=== PATIENT | female | born 1945 | race Caucasian/White ===

== ENCOUNTER 2016-10-12 19:46 | Inpatient (IN) | payer MEDICARE, BC ==
[~2016-10-12] VITALS: Ht 157.5 cm; Wt 45.4 kg
[2016-10-12 20:32] LABS: BASOPHILS 0.4 % (0.0-2.0); EOSINOPHILS 1.9 % (0-7); HEMATOCRIT 41.1 % (36.0-48.0); HEMOGLOBIN 14.1 g/dL (12-16); IMMATURE GRANULOCYTES 0.2 % (0-5); LYMPHOCYTES 27.5 % (15-50); MCH 31.6 pg (26.0-34.0); MCHC 34.3 g/dL (31.0-37.0); MCV 92.2 fL (80.0-100.0); MONOCYTES 13.2 % (2-11); NEUTROPHILS 56.8 % (40-80); PLATELET COUNT 219 10x3/uL (130-400); RBC 4.46 10x6/uL (4.00-5.40); RDW 12.3 % (11.5-14.5); WBC 4.7 10x3/uL (4.8-10.8)
[2016-10-12 20:46] LABS: ALBUMIN 3.7 g/dL (3.4-5.0); ALKALINE PHOSPHATASE 80 U/L (46-116); ALT (SGPT) 37 U/L (10-68); BILIRUBIN - TOTAL 0.23 mg/dL (0.2-1.3); CALC OSMOLALITY 270 mosm/kg (275-300); CALCIUM 8.9 mg/dL (8.5-10.1); CARBON DIOXIDE 30.3 mmol/L (21.0-32.0); CHLORIDE - SERUM 97 mmol/L (98-107); CREATININE - SERUM 0.5 mg/dL (0.6-1.3); GLUCOSE 96 mg/dL (74-106); POTASSIUM - SERUM 3.5 mmol/L (3.5-5.1); PROTEIN - SERUM 7.5 g/dL (6.4-8.2); SODIUM 137 mmol/L (136-145); UREA NITROGEN 5 mg/dL (7-18); eGFR NON AFRICAN AMERICAN > 90 mL/min (90-120)
[2016-10-12 20:57] LABS: CKMB 2.4 U/L (0.0-3.6); CREATINE KINASE 173 UL (21-215)
[2016-10-12 20:59] LABS: TROPONIN-I < 0.017 ng/mL (0.000-0.060)
--- NOTE | 2016-10-12 23:00 | NUR ---
PT ADMITTED TO ROOM 2127 FROM ER. ACCOMPANIED BY HER . ALERT/ORIENTED. PIV TO RFA. ADMISSION ASSESSMENT AND HISTORY COMPLETED. IVF NS @ 75ML/HR INITIATED. IV ROCEPHIN UP. DID NOT GIVE ANY SOLUMEDROL PT RECIEVED 125MG IV WHILE IN ER. WILL START 40MG IV IN AM. HOME MEDS REVIEWED. INITIATE PLAN OF CARE. STAYING WITH PATIENT.
[2016-10-13 00:24] VITALS: BP 165/87
[2016-10-13 02:58] VITALS: BP 165/87; BMI 18.8
[2016-10-13] MEDS ORDERED: ANORO ELLIPTA1 EACH INH (04:13)
[2016-10-13] MEDS ORDERED: FLOVENT HFA (04:14)
--- NOTE | 2016-10-13 08:00 | NUR ---
INTRODUCED MYSELF TO PT PRIMARY RN FOR TODAYS SHIFT. PT IS ALERT AND ORIENTED SITTING UP IN BED WITH AT BEDSIDE. SHIFT ASSESSMENT COMPLETED. PT HAS NC @2L IN PLACE AND OFTEN STATES SHE IS SOB AND CANT CATCH HER BREATH. ENCOURAGED PT TO DEEP BREATHE IN THROUGH HER NOSE AND OUT OF HER MOUTH, PT RETURNED DEMONSTRATION BUT OFTEN BREATHES VERY SHALLOW ON HER OWN. PT DENIES ANY CURRENT NEEDS AT THIS TIME. R.FA PIV IN PLACE RUNNING NS @75ML/HR WITH DRSG CDI AND SWAB CAPS IN USE. WILL CPOC.
[2016-10-13 08:49] VITALS: BP 155/93
--- NOTE | 2016-10-13 12:22 | NUR ---
PT SITTING UP IN BED WITH AT BEDSIDE EATING LUNCH. DENIES ANY CURRENT PAIN OR NEEDS AT THIS TIME. EMPTIED TOP HAT OF 1000ML CLEAR YELLOW URINE FROM TOILET. CL IN REACH. WILL CPOC.
[2016-10-13 12:43] VITALS: BP 149/85
[2016-10-13 13:29] VITALS: Ht 157.5 cm; Wt 45.4 kg
[2016-10-13 17:19] VITALS: BP 166/95
--- NOTE | 2016-10-13 18:47 | NUR ---
REFUSED SCD, UP ADLIB.
--- NOTE | 2016-10-13 20:29 | NUR ---
PT RESITING IN BED. BREATHING TREATMENT IN PROGRESS. O2 @ 2L/NC WITH MILD SOB WME. IV TO RFA WITH NS @75ML/HR. SEE ASSESSMENT. CPOC.
[2016-10-13 21:08] VITALS: BP 149/87
[2016-10-14 04:15] VITALS: BP 141/86
[2016-10-14 06:26] LABS: BASOPHILS 0 % (0.0-2.0); EOSINOPHILS 0 % (0-7); HEMATOCRIT 39.6 % (36.0-48.0); IMMATURE GRANULOCYTES 0.2 % (0-5); LYMPHOCYTES 10.2 % (15-50); MCH 30.7 pg (26.0-34.0); MCHC 32.8 g/dL (31.0-37.0); MCV 93.6 fL (80.0-100.0); MEAN PLATELET VOLUME 10.2 fL (7.4-10.4); MONOCYTES 10.2 % (2-11); NEUTROPHILS 79.4 % (40-80); PLATELET COUNT 261 10x3/uL (130-400); RBC 4.23 10x6/uL (4.00-5.40); RDW 12.6 % (11.5-14.5)
[2016-10-14 06:33] LABS: WBC 6.4 10x3/uL (4.8-10.8)
[2016-10-14 06:39] LABS: CALC OSMOLALITY 278 mosm/kg (275-300); CALCIUM 8.6 mg/dL (8.5-10.1); CHLORIDE - SERUM 102 mmol/L (98-107); CREATININE - SERUM 0.5 mg/dL (0.6-1.3); GLUCOSE 131 mg/dL (74-106); POTASSIUM - SERUM 4.2 mmol/L (3.5-5.1); SODIUM 140 mmol/L (136-145); UREA NITROGEN 8 mg/dL (7-18); eGFR NON AFRICAN AMERICAN > 90 mL/min (90-120)
--- NOTE | 2016-10-14 07:34 | NUR ---
ON HEART MONITOR SHOWING ST, HR 114. ON 2L PER NC. RIGHT FA SEEN WITH NS INFUSING AT 75 CC/HR. ON EP, WILL MONITOR LAB VALUES. PATIENT IS RECEIVING UPDRAFT TREATMENT AT PRESENT TIME. WILL CONTINUE TO MONITOR.
[2016-10-14 08:23] VITALS: BP 134/90
[2016-10-14 09:08] LABS: PHOSPHOROUS 3.7 mg/dL (2.5-4.9)
[2016-10-14 12:17] VITALS: BP 161/83
[2016-10-14 15:15] VITALS: BP 161/86
--- NOTE | 2016-10-14 19:03 | NUR ---
LAYING IN BED, AAOX3, SKIN WARM AND DRY, RESP UNLABORED, IV PATENT TO RIGHT FOREARM, O2@2LNC, MOOD PLEASANT, NO DISTRESS NOTED
[2016-10-14 21:26] VITALS: BP 159/88
[2016-10-15 00:30] VITALS: BP 141/80
--- NOTE | 2016-10-15 00:54 | NUR ---
DIRECTOR OF CAREER SERVICES AT BEDSIDE FOR VS. NEEDS ADDRESSED, CALL LIGHT IN REACH. WILL CONT TO MONITOR.
[2016-10-15 04:30] VITALS: BP 143/89
[2016-10-15 05:32] LABS: BASOPHILS 0.1 % (0.0-2.0); EOSINOPHILS 0 % (0-7); HEMATOCRIT 39.9 % (36.0-48.0); HEMOGLOBIN 12.9 g/dL (12-16); IMMATURE GRANULOCYTES 0.4 % (0-5); LYMPHOCYTES 10.1 % (15-50); MCH 30.5 pg (26.0-34.0); MCHC 32.3 g/dL (31.0-37.0); MCV 94.3 fL (80.0-100.0); MEAN PLATELET VOLUME 9.7 fL (7.4-10.4); MONOCYTES 9.7 % (2-11); NEUTROPHILS 79.7 % (40-80); PLATELET COUNT 291 10x3/uL (130-400); RBC 4.23 10x6/uL (4.00-5.40); RDW 12.6 % (11.5-14.5); WBC 6.8 10x3/uL (4.8-10.8)
[2016-10-15 05:48] LABS: CALC OSMOLALITY 279 mosm/kg (275-300); CALCIUM 9.1 mg/dL (8.5-10.1); CHLORIDE - SERUM 100 mmol/L (98-107); CREATININE - SERUM 0.5 mg/dL (0.6-1.3); GLUCOSE 128 mg/dL (74-106); POTASSIUM - SERUM 4.3 mmol/L (3.5-5.1); SODIUM 140 mmol/L (136-145); eGFR NON AFRICAN AMERICAN > 90 mL/min (90-120)
[2016-10-15 05:50] LABS: UREA NITROGEN 11 mg/dL (7-18)
--- NOTE | 2016-10-15 06:45 | NUR ---
RESTING QUEITLY IN BED, NO DISTRESS NOTED
--- NOTE | 2016-10-15 07:24 | NUR ---
SITTING UP IN BED DOING BREATHING TREATMENT. DENIES NEEDS AT PRESENT TIME ON EP WITH K+ 4.3. ON 2L PER NC. ON HEART MONITOR SHOWING SR, HR 99. RIGHT FA SEEN WITH SALINE LOCK, WILL CONTINUE TO MONITOR.
[2016-10-15 08:13] VITALS: BP 158/90
[2016-10-15 12:43] VITALS: BP 165/88
[2016-10-15 16:00] VITALS: BP 143/90
--- NOTE | 2016-10-15 16:52 | NUR ---
DENIES ANY NEEDS FOR THIS SHIFT. AT BEDSIDE. WILL CONTINUE TO MONITOR.
--- NOTE | 2016-10-15 19:44 | NUR ---
RESUMED CARE OF PT, LYING IN BED RESPIRAITONS EVEN AND UNLABORED ON 2LPM VIA NC. 95 SR ON TELEMETRY. RIGHT FOREARM SALINE LOCKED. NO NEEDS VOICED AT THIS TIME. WILL CONTINUE TO MONITOR. SEE NURSE ASSESSMENT. CALL LIGHT IN REACH.
[2016-10-15 21:24] VITALS: BP 142/94
[2016-10-16 00:30] VITALS: BP 136/86
--- NOTE | 2016-10-16 01:32 | NUR ---
CASING MATERIAL WEIGHER AT BEDSIDE TO OBTAIN VITALS, WILL CONTINUE WITH PLAN OF CARE.
[2016-10-16 04:30] VITALS: BP 144/89
[2016-10-16 05:07] LABS: CALC OSMOLALITY 279 mosm/kg (275-300); CALCIUM 8.8 mg/dL (8.5-10.1); CHLORIDE - SERUM 98 mmol/L (98-107); CREATININE - SERUM 0.6 mg/dL (0.6-1.3); GLUCOSE 139 mg/dL (74-106); POTASSIUM - SERUM 3.9 mmol/L (3.5-5.1); SODIUM 139 mmol/L (136-145); UREA NITROGEN 12 mg/dL (7-18); eGFR NON AFRICAN AMERICAN > 90 mL/min (90-120)
[2016-10-16 05:09] LABS: BASOPHILS 0 % (0.0-2.0); EOSINOPHILS 0 % (0-7); HEMATOCRIT 41.4 % (36.0-48.0); HEMOGLOBIN 13.4 g/dL (12-16); IMMATURE GRANULOCYTES 0.6 % (0-5); LYMPHOCYTES 6.5 % (15-50); MCH 30.6 pg (26.0-34.0); MCHC 32.4 g/dL (31.0-37.0); MCV 94.5 fL (80.0-100.0); MEAN PLATELET VOLUME 9.9 fL (7.4-10.4); NEUTROPHILS 85.9 % (40-80); PLATELET COUNT 331 10x3/uL (130-400); RBC 4.38 10x6/uL (4.00-5.40); RDW 12.6 % (11.5-14.5); WBC 7.7 10x3/uL (4.8-10.8)
--- NOTE | 2016-10-16 06:40 | NUR ---
NO CHANGES FROM PREVIOUS ASSESSMENT, CALL LIGHT IN REACH.
--- NOTE | 2016-10-16 08:07 | NUR ---
REPORTS TO HAVING A "GOOD NIGHT". ON HEARR MONITOR SHOWING SR, HR 78. ON 2L PER NC, WHEEZES HEARD TO RIGHT LUNG, DIMINISHED TO LEFT. RIGHT FOREARM SEEN WITH SALINE LOCK. WILL CONTINUE TO MONITOR.
[2016-10-16 08:32] VITALS: BP 139/90
--- NOTE | 2016-10-16 12:03 | NUR ---
DONATO TORREZ APN HERE TO SEE PATIENT. PATIENT DENIES NEEDS AT PRESENT TIME. WILL CONTINUE TO MONITOR.
[2016-10-16 12:30] VITALS: BP 156/80
[2016-10-16] MEDS ORDERED: FLOVENT HFA 11012 GM INH (14:24)
[2016-10-16 16:44] VITALS: BP 132/72
--- NOTE | 2016-10-16 19:35 | NUR ---
RECEIVED REPORT, 022L, IV-RFA-SL, [id number], BED IS LOW, SRX2, CALL LIGHT IN REACH, WILL CONTINUE TO MONITOR
--- NOTE | 2016-10-16 21:15 | NUR ---
IV-LEAKING RFA- RESITED TO LFA-
--- NOTE | 2016-10-16 23:39 | NUR ---
PHYSICAL THERAPY NURSE AT BEDSIDE FOR VS, NEEDS ADDRESSED AT THIS TIME. CALL LIGHT IN REACH. CONT TO MONITOR.
[2016-10-17 01:19] VITALS: BP 143/81
[2016-10-17 05:06] VITALS: BP 154/93
[2016-10-17 05:36] LABS: BASOPHILS 0 % (0.0-2.0); EOSINOPHILS 0 % (0-7); HEMATOCRIT 41.2 % (36.0-48.0); HEMOGLOBIN 13.3 g/dL (12-16); IMMATURE GRANULOCYTES 0.9 % (0-5); LYMPHOCYTES 10.4 % (15-50); MCH 30.4 pg (26.0-34.0); MCHC 32.3 g/dL (31.0-37.0); MCV 94.3 fL (80.0-100.0); MEAN PLATELET VOLUME 9.6 fL (7.4-10.4); MONOCYTES 9.3 % (2-11); NEUTROPHILS 79.4 % (40-80); PLATELET COUNT 346 10x3/uL (130-400); RBC 4.37 10x6/uL (4.00-5.40); RDW 12.7 % (11.5-14.5); WBC 6.3 10x3/uL (4.8-10.8)
--- NOTE | 2016-10-17 05:49 | NUR ---
SLEEPING, CALL LIGHT IN REACH
[2016-10-17 05:52] LABS: CALC OSMOLALITY 277 mosm/kg (275-300); CALCIUM 8.8 mg/dL (8.5-10.1); CARBON DIOXIDE 35.6 mmol/L (21.0-32.0); CHLORIDE - SERUM 100 mmol/L (98-107); CREATININE - SERUM 0.5 mg/dL (0.6-1.3); GLUCOSE 117 mg/dL (74-106); POTASSIUM - SERUM 4.1 mmol/L (3.5-5.1); SODIUM 139 mmol/L (136-145); UREA NITROGEN 11 mg/dL (7-18); eGFR NON AFRICAN AMERICAN > 90 mL/min (90-120)
--- NOTE | 2016-10-17 07:45 | NUR ---
INTRODUCED MYSELF TO PT PRIMARY RN FOR TODAYS SHIFT. PT IS ALERT AND ORIENTED RESTING QUIETLY IN BED. RR NONLABORED WITH NC @1L IN PLACE. PT HAS L.FA PIV WITH ADAN CDI AND SWAB CAPS IN USE. PT STATES SHE IS FEELING MUCH BETTER TODAY COMPARED TO YESTERDAY. DENIES ANY CURRENT PAIN OR NEEDS. CL IN REACH. WILL CPOC.
[2016-10-17 08:12] VITALS: BP 176/83
--- NOTE | 2016-10-17 11:14 | NUR ---
Patient Name: HUBER HOOVER Admission Status: Elective Accout number: [id number] Admission Date: 10-12-2016 : 1945 Admission Diagnosis:CHRONIC OBSTRUCTIVE PULMONARY DISEASE W (ACUTE) EXACERB Attending: CAN Current LOS: 5 Anticipated DC Date: Planned Disposition: Home Primary Insurance: MEDICARE A & B Discharge Planning Comments: * Is the patient Alert and Oriented? Yes 0 * How many steps to enter\exit or inside your home? NONE 0 * PCP DR. DAIGLE 0 * [facility] #[facility] 0 * Preadmission Environment Home with Family 0 * ADLs Independent 0 * Equipment Nebulizer 0 * Other Equipment [facility]-MEDICAL EQUIPMENT PROVIDER 0 * List name and contact numbers for known caregivers / representatives who currently or will assist patient after discharge: JESSICA HOOVER, SPOUSE, / [phone] 0 * Community resources currently utilized None 0 * Please name any agencies selected above. NONE 0 * Additional services required to return to the preadmission environment? No 0 * Can the patient safely return to the preadmission environment? Yes 0 * Has this patient been hospitalized within the prior 30 days at any hospital? No 0 CM MET WITH PT AND SPOUSE IN ROOM TO DISCUSS DISCHARGE PLANNING AND NEEDS. PT REPORTS LIVING AT HOME INDEPENDENTLY WITH SPOUSE. PT HAS A NEBULIZER FROM [facility]. PT HAS NO OUTSIDE SERVICES ASSISTING IN THE HOME. CM DISCUSSED AVAILABILITY OF HOME HEALTH, REHAB SERVICES AND MEDICAL EQUIPMENT. PT DENIES DISCHARGE NEEDS, REPORTS HER SPOUSE WILL PICK HER UP FOR DISCHARGE HOME. Engraver Wood: Valentin Adrono
--- NOTE | 2016-10-17 12:03 | NUR ---
PT SITTING UP IN BED RESTING COMFORTABLY WITH AT BEDSIDE. RR NONLABORED. PT STATES SHE IS DOING WELL AND DENIES ANY CURRENT PAIN OR NEEDS. CL IN REACH. WILL CTM.
[2016-10-17 12:14] VITALS: BP 158/92
--- NOTE | 2016-10-17 13:03 | NUR ---
Nutrition follow-up: Diet: Regular PO intake ~75% of meals Labs reviewed Wt: 98# -> down 5# from admit wt of 103# Pt is now assessed with severe malnutrition of chronic illness R/T COPD AEB ~5% wt loss in 1 week; noted severe subcutaneous fat, muscle loss from all extremities and shoulder, collar bone areas. Will start a calorie count x 3 days to assess how many kcal, protein pt is consuming in [address] RDN following.
[2016-10-17 15:59] VITALS: BP 139/80
--- NOTE | 2016-10-17 16:37 | NUR ---
PT RESTING QUIETLY IN BED WITH EYES CLOSED. RR NONLABORED. NO NEEDS IDENTIFIED AT THIS TIME. CL IN REACH. WILL CPOC.
--- NOTE | 2016-10-17 19:30 | NUR ---
RECEIVED REPORT, 1L, IV-LFA-SL, PT IS A&O, UP AB GERALD, DENIES ANY NEEDS, CALL LIGHT IN REACH, WILL CONTINUE TO MONITOR
[2016-10-17 20:00] VITALS: BP 143/86
--- NOTE | 2016-10-17 23:44 | NUR ---
MULTIPLE WIRE SAWYER AT BEDSIDE FOR VS, NEEDS ADDRESSED. CALL LIGHT IN REACH.CONT TO MONITOR.
[2016-10-18] VITALS: BP 159/85
--- NOTE | 2016-10-18 01:53 | NUR ---
ASSESSMENT COMPLETE,PT SLEEPING, CALL LIGHT IN REACH
[2016-10-18 04:00] VITALS: BP 131/84
[2016-10-18 05:12] LABS: BASOPHILS 0 % (0.0-2.0); EOSINOPHILS 0 % (0-7); HEMATOCRIT 42.2 % (36.0-48.0); HEMOGLOBIN 13.9 g/dL (12-16); IMMATURE GRANULOCYTES 0.7 % (0-5); LYMPHOCYTES 6.1 % (15-50); MCH 30.8 pg (26.0-34.0); MCHC 32.9 g/dL (31.0-37.0); MCV 93.6 fL (80.0-100.0); MEAN PLATELET VOLUME 9.7 fL (7.4-10.4); MONOCYTES 3.8 % (2-11); NEUTROPHILS 89.4 % (40-80); PLATELET COUNT 360 10x3/uL (130-400); RBC 4.51 10x6/uL (4.00-5.40); RDW 12.8 % (11.5-14.5); WBC 7.4 10x3/uL (4.8-10.8)
[2016-10-18 05:57] LABS: CALC OSMOLALITY 282 mosm/kg (275-300); CARBON DIOXIDE 32.5 mmol/L (21.0-32.0); CHLORIDE - SERUM 101 mmol/L (98-107); CREATININE - SERUM 0.5 mg/dL (0.6-1.3); GLUCOSE 147 mg/dL (74-106); MAGNESIUM - SERUM 2.3 mg/dL (1.8-2.4); PHOSPHOROUS 4.4 mg/dL (2.5-4.9); POTASSIUM - SERUM 4.2 mmol/L (3.5-5.1); SODIUM 141 mmol/L (136-145); UREA NITROGEN 11 mg/dL (7-18); eGFR NON AFRICAN AMERICAN > 90 mL/min (90-120)
--- NOTE | 2016-10-18 07:20 | NUR ---
RECEIVED REPORT FROM NIGHT NURSE. UP IN BED RECEIVING RESP TREATMENT. WILL CONTINUE TO MONITOR.
[2016-10-18 08:49] VITALS: BP 153/82
[2016-10-18 12:45] VITALS: BP 126/71
[2016-10-18 15:44] VITALS: BP 143/79
--- NOTE | 2016-10-18 16:54 | NUR ---
PATIENT AMBULATED AROUND WHOLE UNIT. STARTING O2 SAT IS 89. 1/3 OF WALKING O2 SAT IS 90. 1/2 AROUND O2 SAT DOWN TO 88. THEN 87 AND FINAL WAS 85. BACK TO ROOM WITH O2 APPLIED.
--- NOTE | 2016-10-18 19:50 | NUR ---
RECEIVED REPORT, 021L, [id number]. SITTING UP IN BED, DENIES ANY NEEDS, CALL LIGHT IN REACH, WILL CONTINUE TO MONITOR
[2016-10-18 20:00] VITALS: BP 140/81
[2016-10-19] VITALS: BP 151/76
--- NOTE | 2016-10-19 00:14 | NUR ---
WELT EDGE ROUNDER AT BEDSIDE TO OBTAIN VITALS, CALL LIGHT IN REACH. WILL CONTINUE WITH PLAN OF CARE.
[2016-10-19 04:00] VITALS: BP 164/80
--- NOTE | 2016-10-19 07:30 | NUR ---
RECEIVED PT IN BED AAOX4 RESP UNLABORED NAD NOTED DENIES ANY NEEDS OR DISCOMFORT
[2016-10-19 07:49] VITALS: BP 130/77
[2016-10-19 12:36] VITALS: BP 138/74
--- NOTE | 2016-10-19 15:43 | NUR ---
Nutrition follow-up/calorie count: Diet: REgular PO intake 100% of meals Labs reviewed Wt: 98# 24 hour calorie count kcal protein Breakfast 590 20 Lunch 790 25 Dinner 325 19 Total 1730 kcal 64 gm protein Pt with good po intake at this time. RDN following.
[2016-10-19 16:21] VITALS: BP 123/74
[2016-10-19 20:00] VITALS: BP 143/77
--- NOTE | 2016-10-19 20:22 | NUR ---
RESTING IN BED. ALERT/ORIENTED. SR PER TELEMETRY. O2 @ 1L/NC AND CURRENTLY HAS BREATHING TREATMENT IN PROGRESS. LFA PIV WITH NS @ 75ML/HR. SEE ASSESSMENT. CPOC. CALL LIGHT IN REACH.
--- NOTE | 2016-10-19 21:15 | NUR ---
HS MEDS GIVEN. PT RESTING. NO OTHER NEEDS.
--- NOTE | 2016-10-19 23:21 | NUR ---
HS MEDS HAVE BEEN GIVEN. FSBS 364, LANTUS AND SLIDING SCALE GIVEN. IV ABT INFUSING. PT HAD REQUESTED ATIVAN AND BENADRYL WITH HS MEDS, BOTH GIVEN. CALL LIGHT IN REACH. CPOC.
[2016-10-20] VITALS: BP 154/79
[2016-10-20 04:00] VITALS: BP 134/77
--- NOTE | 2016-10-20 07:32 | NUR ---
PT SITTING UP IN BED DENIES NEEDS WILL CONT TO MONITOR.
[2016-10-20 08:13] VITALS: BP 139/76
[2016-10-20 08:35] LABS: MAGNESIUM - SERUM 2.1 mg/dL (1.8-2.4); PHOSPHOROUS 3.8 mg/dL (2.5-4.9); POTASSIUM - SERUM 4.1 mmol/L (3.5-5.1)
[2016-10-20 11:52] VITALS: BP 143/82
--- NOTE | 2016-10-20 14:57 | NUR ---
Patient Name: HUBER HOOVER Encounter No: [id number] : 1945 Primary Insurance: MEDICARE A & B Anticipated DC Date: 10-22-2016 Planned Disposition: Home DCP follow-up note: CM RECEIVED ORDER FOR OXYGEN ARRANGEMENT FOR PLANNED DISCHARGE ON 10-22-16. CM SPOKE TO DR. FOREMAN WHO PROVIDED ORDER FOR OUTPATIENT PULMONARY REHAB ARRANGEMENT FOR PT. CM MET WITH PT AND SPOUSE IN ROOM, DISCUSSED ABOVE. PT REQUESTED OXYGEN FROM [facility] AND IS AGREEABLE FOR OUTPATIENT PULMONARY REHAB SERVICES. IMPORTANT MESSAGE FROM MEDICARE PROVIDED AND EXPLAINED, PT'S SPOUSE TO TRANSPORT PT HOME AT DISCHARGE. CM CALLED [facility], , SPOKE TO SU AND PROVIDED REFERRAL INFORMATION; CM FAXED REFERRAL TO [phone]. SU WILL ARRANGE PORTABLE DELIVERY TO ROOM FOR PT'S DISCHARGE HOME ON SUNDAY AND WILL ALSO ARRANGE HOME CONCENTRATOR FOR PT'S HOME USE. IF PT DOES NOT DISCHARGE SUNDAY BEFORE 1400 HOURS, PT WILL REQUIRE NEW OXYGEN TESTING TO BE PROVIDED TO [facility] PRIOR TO DISCHARGE. CM CALLED [facility], , AND LEFT MESSAGE WITH REFERRAL INFORMATION AND REQUEST TO ARRANGE OUTPATIENT THERAPY WITH PATIENT. CM FAXED REFERRAL TO [phone]. CM NOTIFIED PT AND SPOUSE. NO FURHTER DISCHARGE NEEDS IDENTIFIED AT THIS TIME. CM TO FOLLOW AND ASSIST IF NEEDED. Valentin Adorno, CASE MANAGEMENT
[2016-10-20 16:15] VITALS: BP 116/69
--- NOTE | 2016-10-20 17:54 | NUR ---
PT SITTING UP IN BED DENIES NEEDS WILL CONT TO MONITOR.
--- NOTE | 2016-10-20 19:18 | NUR ---
RECEIVED REPORT, PT IS HAVING BREATHING TREATMENT, O2-1L, IV-LFA-NS @ 30, [id number], BED IS LOW, SRX2, PT DENIES ANY NEEDS, CALL LIGHT IN REACH, WILL CONTINUE TO MONITOR
[2016-10-20 20:55] VITALS: BP 127/63; BP 136/75
--- NOTE | 2016-10-20 22:37 | NUR ---
PT LAYING IN BED NO DISTRESS OBSERVED CALL LIGHT IN [facility] SRX2 BED LOW AND LOCKED WILL MONITOR
[2016-10-21 00:11] VITALS: BP 128/79
--- NOTE | 2016-10-21 02:33 | NUR ---
ASSESSMENT COMPLETE, PT SLEEPING, CALL LIGHT IN REACH
[2016-10-21 04:49] VITALS: BP 126/74
[2016-10-21 06:37] LABS: BASOPHILS 0 % (0.0-2.0); EOSINOPHILS 0 % (0-7); HEMATOCRIT 37.4 % (36.0-48.0); HEMOGLOBIN 12.3 g/dL (12-16); IMMATURE GRANULOCYTES 0.4 % (0-5); LYMPHOCYTES 4.7 % (15-50); MCH 30.7 pg (26.0-34.0); MCHC 32.9 g/dL (31.0-37.0); MCV 93.3 fL (80.0-100.0); MEAN PLATELET VOLUME 9.7 fL (7.4-10.4); MONOCYTES 5.4 % (2-11); NEUTROPHILS 89.5 % (40-80); PLATELET COUNT 319 10x3/uL (130-400); RBC 4.01 10x6/uL (4.00-5.40); RDW 13.2 % (11.5-14.5); WBC 7.8 10x3/uL (4.8-10.8)
[2016-10-21 07:13] LABS: ALBUMIN 2.8 g/dL (3.4-5.0); ALKALINE PHOSPHATASE 50 U/L (46-116); ALT (SGPT) 62 U/L (10-68); CALC OSMOLALITY 276 mosm/kg (275-300); CALCIUM 8.4 mg/dL (8.5-10.1); CARBON DIOXIDE 29.8 mmol/L (21.0-32.0); CHLORIDE - SERUM 101 mmol/L (98-107); CREATININE - SERUM 0.4 mg/dL (0.6-1.3); GLUCOSE 124 mg/dL (74-106); MAGNESIUM - SERUM 2.2 mg/dL (1.8-2.4); PHOSPHOROUS 4.1 mg/dL (2.5-4.9); POTASSIUM - SERUM 3.8 mmol/L (3.5-5.1); PROTEIN - SERUM 5.8 g/dL (6.4-8.2); SODIUM 138 mmol/L (136-145); UREA NITROGEN 12 mg/dL (7-18); eGFR NON AFRICAN AMERICAN > 90 mL/min (90-120)
--- NOTE | 2016-10-21 07:32 | NUR ---
WALKING ROUNDS,WITHOUT DISTRESS.DENIES NEEDS.CALL LIGHT IN REACH RESPTX IN PROGRESS.
[2016-10-21 08:01] VITALS: BP 135/68
--- NOTE | 2016-10-21 09:15 | NUR ---
ASSESSMENT PER FLOW SHEET.PT WITHOUT DISTRESS.CALL LIGHT IN REACH
--- NOTE | 2016-10-21 11:42 | NUR ---
AT BEDSIDE,REMAINS WITHOUT NEEDS.CALL LIGHT IN REACH
[2016-10-21 12:02] VITALS: BP 124/69
[2016-10-21] MEDS ORDERED: MUCINEX600 MG PO (12:05)
[2016-10-21] MEDS ORDERED: FLUTICASONE PRO16 GM NASAL (12:05)
[2016-10-21] MEDS ORDERED: PULMICORT0.5 MG/21 UPD (12:05)
[2016-10-21] MEDS ORDERED: BENZONATATE200 MG PO (12:05)
[2016-10-21] MEDS ORDERED: SINGULAIR10 MG PO (12:05)
[2016-10-21] MEDS ORDERED: DALIRESP500 MCG PO (12:05)
[2016-10-21] MEDS ORDERED: PROTONIX40 MG PO (12:06)
[2016-10-21] MEDS ORDERED: PREDNISONE20 MG PO (12:06)
[2016-10-21] MEDS ORDERED: ACYCLOVIR15 GM TOPICAL (12:06)
[2016-10-21] MEDS ORDERED: BROVANA15 MCG/2 M INH (12:07)
[2016-10-21] MEDS ORDERED: IPRAT-ALBUT 0.5-3 ML INH (12:07)
[2016-10-21] MEDS ORDERED: SYMBICORT 16010.2 GM INH (12:07)
--- NOTE | 2016-10-21 13:56 | NUR ---
FAMILY AT SIDE.PT TO DC HOME.REMAINS WITHOUT DISTRESS.
--- NOTE | 2016-10-21 14:25 | NUR ---
DISCHARGE INSTRUCTIONS,STATES UNDERSTANDING.IV DCD CATH INTACT.LEFT FLOOR VIA WHEELCHAIR
--- NOTE | 2016-10-21 15:51 | NUR ---
Late Entry PATIENT FOR DISCHARGE TO HOME TODAY. DR FOREMAN ORDERED A NEBULIZER AND MEDICATIONS. CM SPOKE W/ PATIENT AND HER SON AT THE BEDSIDE. ADVISED OF 4 DME PROVIDERS FOR NEBULIZER. SON [facility]. TC TO [facility] AND S/W REY OQUENDO. SHE STATED SHE WOULD SPEAK W/ THE PATIENT ABOUT DELIVERY. DATA SYSTEMS MANAGER CALLED PATIENT'S PHARMACY, [facility], REGARDING COST OF MEDS. THE PHARMACY WAS CLOSED UNTIL SUNDAY. SHE CALLED THE [facility] AND IT WAS ALSO CLOSED. SHE S/W THE PATIENT. PATIENT SELECTED [facility] [address] SHE ADVISED DR FOREMAN HAD STATED THE ATROVENT WAS THE MOST IMPORTANT OF THE NEBULIZER MEDS. CM HAD CALLED LEDGER POSTER TO SEE IF SCREENING HAD BEEN DONE FOR THIS PATIENT W/ NO SECONDARY. LEFT MS FOR FOLLOWUP
--- NOTE | 2016-10-21 17:15 | NUR ---
vLate Entry Patient discharged to home today. Her portable oxygen was delivered to her room prior to discharge from [facility] in [facility]. She was provided w/ contact information for the sales and in home delivery specialist to bring the concentrator once she arrived at home.
--- NOTE | 2016-11-10 13:49 | CN ---
PATIENT NAME:HUBER LERMA MEDICAL RECORD: [id number] : [birth year] LOCATION:. D.2128 ADMIT DATE: 10/12/16 ACCOUNT: [id number] CONSULTING PHYSICIAN: DOMENICO ESTRADA MD REFERRING PHYSICIAN: SHIRLEY BRISCOE M.D. DATE OF CONSULTATION: 10/13/2016 CONSULT REQUESTING PHYSICIAN: Shirley Briscoe MD REASON FOR CONSULTATION: Acute exacerbation of chronic obstructive pulmonary disease. HISTORY OF PRESENT ILLNESS: Ms. Lerma is a 71-year-old female, very well known to me. The patient says she is doing fairly although 3 days ago, she developed cold-like symptoms. She has fever. She was congested. She was coughing. She was wheezing and shortness of breath. Home inhaler was not helping. The patient came into the ER and admitted for acute COPD exacerbation. There was no associated nausea, vomiting nor diarrhea. She has generalized body aches and pain. REVIEW OF SYSTEMS: CONSTITUTIONAL: She has a low-grade fever. HEENT: Sinus congestion. RESPIRATORY: As in history of present illness. CARDIOVASCULAR: Negative. GASTROINTESTINAL: Negative. GENITOURINARY: Negative. Other review of the systems is negative. PAST MEDICAL HISTORY: 1. COPD. 2. Vitamin D deficiency. 3. History of dyspnea. 4. History of pleural effusions. 5. Osteoarthritis. PAST SURGICAL HISTORY: Nonsignificant. ALLERGIES: There are no known drug allergies. PRESENT MEDICATIONS: Business Combined was reviewed. PERSONAL AND SOCIAL HISTORY: The patient is an ex-smoker. She is a nondrinker. FAMILY HISTORY: Noncontributory. PHYSICAL EXAMINATION: GENERAL: The patient is lying comfortably. She is not in acute respiratory distress. VITAL SIGNS: The blood pressure is 149/85, pulse is 112, respirations 20, temperature 98.1, and SpO2 of 94% on 2.5 liter nasal cannula. HEENT: Conjunctivae are pink. Sclerae nonicteric. NECK: Neck is supple, no JVD. CHEST: The chest excursion is minimal on both sides. Wheeze on forceful expiration. CONSULT REPORT [id number] HUBER LERMA HEART: Rhythm regular, normal sound, no murmur. ABDOMEN: Abdomen is soft. Bowel sounds present. No hepatosplenomegaly. RECTAL: Deferred. EXTREMITIES: No cyanosis. No clubbing. No pedal edema. SKIN: The skin is warm, normal turgor. CENTRAL NERVOUS SYSTEM: The patient is awake and alert. There is no obvious cranial nerve abnormality. The gait was not tested. CHEST RADIOGRAPH: There is hyperinflation, no acute infiltrates. LABORATORY DATA: CBC: WBC 4.7, hemoglobin 14.1, hematocrit 41.1, and the platelet count 290. Chemistry: Sodium 137, potassium 3.5, bicarb is 30.3, BUN is 5, creatinine 0.5. ABG: The pH is 7.38, pCO2 is 51, pO2 is 112, and bicarbonate is 30.9. IMPRESSION: 1. Acute exacerbation of chronic obstructive pulmonary disease. 2. Tracheobronchitis. 3. Compensated respiratory acidosis. 4. Acute hypoxic respiratory failure. RECOMMENDATION: Maximize neb medications, methylprednisolone IV, Rocephin IV, Brovana and budesonide nebulizer. Supplemental oxygen is required. Followup labs and chest radiograph. Dr. Briscoe, once again thank you for involving me in the care of Ms. Lerma. TRANSINT:[id number] Voice Confirmation ID: [id number] DOCUMENT ID: [id number] DOMENICO ESTRADA MD at 1349 CC: SHIRLEY BRISCOE M.D. [id number] DICTATION DATE: 10/13/161456 AUTOMATIC FURNACE OPERATOR: 10/13/162034 DIS IN 10/21/16 [id number] [place] [address]
== END 2016-10-21 14:26 | disposition home or self-care (01) | DRG 189 ==
LOC: D.ER 19:46 → D.M2 22:12
PROVIDERS: Emergency Medicine; Internal Medicine Pulmonary Disease; ADMIT Family Medicine
DX: J96.21 Acute and chronic respiratory failure with hypoxia (principal); J44.1 Chronic obstructive pulmonary disease with (acute) exacerbation; E87.2 Acidosis; J96.22 Acute and chronic respiratory failure with hypercapnia; J31.0 Chronic rhinitis; J32.9 Chronic sinusitis, unspecified; Z87.891 Personal history of nicotine dependence; B00.1 Herpesviral vesicular dermatitis

== ENCOUNTER → 2016-12-12 07:24 | Outpatient (CLI) | payer MEDICARE, BC ==
[2016-10-13 13:29] VITALS: BMI 18.8
[~2016-12-12 07:24] MED LIST: ACYCLOVIR15 GM TOPICAL; ANORO ELLIPTA1 EACH INH; BENZONATATE200 MG PO; BROVANA15 MCG/2 M INH; DALIRESP500 MCG PO; FLOVENT HFA; FLOVENT HFA 11012 GM INH; FLUTICASONE PRO16 GM NASAL; IPRAT-ALBUT 0.5-3 ML INH; MUCINEX600 MG PO; PREDNISONE20 MG PO; PROTONIX40 MG PO; PULMICORT0.5 MG/21 UPD; SINGULAIR10 MG PO; SYMBICORT 16010.2 GM INH
== END | disposition home or self-care (01) ==
LOC: D.RAD 11-30 08:00 → D.RT 11-30 08:00 → D.LAB 11-30 08:00 → D.RAD 11-30 10:00 → D.RT 07:24
DX: J44.9 Chronic obstructive pulmonary disease, unspecified (principal)

== ENCOUNTER → 2017-03-20 12:33 | Outpatient (CLI) | payer MEDICARE, BC ==
[2016-10-13 13:29] VITALS: BMI 18.8
== END | disposition home or self-care (01) ==
LOC: D.RAD 12:33 → D.RT 13:00
DX: J44.9 Chronic obstructive pulmonary disease, unspecified (principal)

== ENCOUNTER → 2018-04-05 09:55 | Outpatient (CLI) | payer MEDICARE, BC ==
[2016-10-13 13:29] VITALS: BMI 18.8
== END | disposition home or self-care (01) ==
LOC: D.RT 09:55
DX: J44.9 Chronic obstructive pulmonary disease, unspecified (principal)

== ENCOUNTER → 2018-11-29 08:00 | Outpatient (CLI) | payer MEDICARE, BC ==
[~2018-11-29 08:00] MED LIST changes: +TRELEGY ELLIPT1 EACH INH; +ZYRTEC10 MG PO
== END | disposition home or self-care (01) ==
LOC: D.RT 08:00
DX: J44.9 Chronic obstructive pulmonary disease, unspecified (principal)

== ENCOUNTER → 2018-12-04 10:27 | Outpatient (CLI) | payer MEDICARE, BC ==
[2016-10-13 13:29] VITALS: BMI 18.8
[~2018-12-04 10:27] MED LIST changes: -TRELEGY ELLIPT1 EACH INH; -ZYRTEC10 MG PO
== END | disposition home or self-care (01) ==
LOC: D.RT 10:27 → D.CN 10:30
PROVIDERS: ATTEND Internal Medicine Pulmonary Disease
DX: Z79.2 Long term (current) use of antibiotics (principal)

== ENCOUNTER → 2019-01-22 10:25 | Outpatient (CLI) | payer MEDICARE, BC ==
[2016-10-13 13:29] VITALS: BMI 18.8
[2019-01-22 12:27] LABS: ALBUMIN 4.1 g/dL (3.4-5.0); ALKALINE PHOSPHATASE 65 U/L (46-116); ALT (SGPT) 27 U/L (10-68); BILIRUBIN - TOTAL 0.41 mg/dL (0.2-1.3); CALC OSMOLALITY 277 mosm/kg (275-300); CARBON DIOXIDE 29.8 mmol/L (21.0-32.0); CHLORIDE - SERUM 100 mmol/L (98-107); CREATININE - SERUM 0.6 mg/dL (0.6-1.3); GLUCOSE 88 mg/dL (74-106); POTASSIUM - SERUM 4.1 mmol/L (3.5-5.1); PROTEIN - SERUM 7.9 g/dL (6.4-8.2); SODIUM 139 mmol/L (136-145); UREA NITROGEN 14 mg/dL (7-18); eGFR NON AFRICAN AMERICAN > 90 mL/min (90-120)
== END | disposition home or self-care (01) ==
LOC: D.ECHO 10:25
PROVIDERS: ATTEND Internal Medicine Pulmonary Disease
DX: Z51.81 Encounter for therapeutic drug level monitoring (principal); Z79.2 Long term (current) use of antibiotics; J44.9 Chronic obstructive pulmonary disease, unspecified

== ENCOUNTER 2019-03-05 11:38 | Outpatient (CLI) | payer MEDICARE, BC ==
[~2019-03-05] VITALS: Ht 154.9 cm; Wt 48.6 kg
--- NOTE | ~2019-03-05 | HEMODYNAMI ---
PATIENT:HUBER HOOVER MEDICAL RECORD: [id number] : 49 LOCATION:DAMANDA ADMISSION DATE: 03/05/19 Generatedon:03/05/201913:58 Patient name: HUBER HOOVER Patient #: [id number] SSN: DO B: 1945 Date of study: 03/05/2019 Page: Of Hemodynamic Procedure Report Patient Data Patient Demographics Procedure consent was obtained First Name: HUBER Gender: Female Last Name: KIKO : 1945 [facility] Initial: FRED Age: 73 year(s) Patient #: [id number] Race: Unknown Additional ID: [id number] Contact details [address]: [address] [place] [address] State: [place] City: [place] Zip code: [address] Past Medical History Allergies: No known allergies Admission Admission Data Admission Date: 03/05/2019 Admission Time: 11:38 Admit Source: Other Lab Results Lab Result Date: 03/05/2019 Lab Result Time: 0:00 CBC Name Units Result Min Max Hematocrit % 40.8 -*(----)-- 42 54 Hemoglobin g/dl 13.8 --(*---)-- 13.5 17.5 Procedure Procedure Types Cath Procedure Diagnostic Procedure SHAINA Procedure Description Procedure Date Procedure Date: 03/05/2019 Procedure Start Time: 13:46 Procedure End Time: 13:57 Procedure Staff Name Function Alex Sterling MD Performing Physician Buster Bermudez RT Monitor Caesar Gomez RN Nurse Roberto Mittal CRNA Additional personnel Shashank Zurita [employer] Ride Mechanic Procedure Data Cath Procedure Fluoroscopy Diagnostic fluoroscopy Total fluoroscopy Time: 0 time: 0 min min Diagnostic fluoroscopy Total fluoroscopy dose: 0 dose: 0 mGy mGy Contrast Material Contrast Material Type Amount (ml) Isovue 300 0 Estimated blood loss: 0 ml Procedure Complications No complications Procedure Medications Medication Administration Route Dosage Oxygen etCO2 Nasal cannula 2 l/min Refer to Anesthesia Notes for Sedation Medications 0.9% NaCl I.V. 100 ml/hr 0.9% NaCl I.V. 100 ml/hr Hemodynamics Rest HGB: 13.8 (g/dl) Heart Rate: 85 (bpm) Snapshots Pre Cath Intra NCS Post Cath Vital Signs Time Heart Resp SPO2 etCO2 NIBP (mmHg) Rhythm Pain Sedation Rate (ipm) (%) (mmHg) Status Level (bpm) 13:39:31 80 2 96 29.2 145/90(121) NSR 0 (11) 10(A) , No pain 13:43:35 80 9 98 36 146/85(112) NSR 0 (11) 10(A) , No pain 13:47:14 87 23 10.5 133/112(130) NSR 0 (11) 10(A) , No pain 13:51:56 86 27 15.7 Out of range NSR 0 (11) 10(A) , No pain 13:52:54 84 34 99 13.5 137/70(100) NSR 0 (11) 10(A) , No pain 13:57:02 77 31 99 28.5 110/61(84) NSR 0 (11) 10(A) , No pain Medications Time Medication Route Dose Verified Delivered Reason Notes Effective ness by by 13:45:45 Oxygen etCO2 2 Alex Maynard Per Nasal l/min [facility] [place] Gomez RN physician cannula 13:45:52 Refer to Alex Maynard Per Anesthesia [facility] [place] Gomez RN physician Notes for MD Sedation Medications 13:46:03 0.9% NaCl I.V. 100 Alex Maynard Per ml/hr [facility] [place] morales MD 13:46:06 0.9% NaCl I.V. 100 Alex Maynard Per ml/hr [facility] [place] Gomez RN physician Procedure Log Time Note 13:29:44 Informed consent obtained and on chart 13:29:48 Admit Source: Other 13:30:08 Caesar Gomez RN sent for patient. Start room use. 13:31:23 Time tracking: Regular hours (M-F 7:00 - 5:00) 13:31:29 Plan of Care:Hemodynamics will remain stable., Cardiac rhythm will remain stable., Comfort level will be maintained., Respiratory function will remain adequate., Patient/ family verbilizes understanding of procedure., Procedure tolerated without complication., Recovers from procedure without complications.. 13:32:24 H&P Date Dictated: 02/18/2019 Within 30 days and on chart., H&P Addendum completed by physician on day of procedure. (MUST COMPLETE FOR ALL OUTPATIENTS). 13:32:48 Patient arrived from Pre/Post Procedure Room to CCL 2. Patient remains on bed/stretcher for procedure. 13:32:52 Warm blankets applied, and lana hugger turned on for patient comfort. 13:33:34 Shashank Yudith Assistant Professor Of Economics present for SHAINA. 13:33:42 ECG and BP/O2 sat monitors applied to patient. 13:33:43 Pre-procedure instructions explained to patient. 13:33:43 Pre-op teaching completed and patient verbalized understanding. 13:33:50 Family in waiting room. 13:33:51 Patient NPO since Midnight. 13:34:08 Patient allergic to No known allergies 13:35:26 Is the patient allergic to Iodine/contrast media? No. 13:35:29 Is patient on blood thinner?No 13:35:30 Patient diabetic? No. 13:35:34 Previous problem with sedation/anesthesia? No ? 13:35:35 Snore? Yes 13:35:36 Sleep apnea? No 13:35:38 Deviated septum? No 13:35:38 Opens mouth fully? Yes 13:35:39 Sticks out tongue? Yes 13:35:42 Airway obstruction? Yes copd 13:35:55 Dentures? Yes in tight 13:36:06 Patient pain scale 0/10 ?. 13:36:25 Roberto Mittal CRNA present and monitoring patient for TIVA. 13:36:28 IV patent on arrival in left forearm with 0.9% NaCl at [facility]. 13:37:42 Lab Result : Hematocrit 40.8 % 13:37:42 Lab Result : Hemoglobin 13.8 g/dl 13:37:45 Lab results completed and on chart. 13:37:48 Alarms reviewed by Darek Araiza 13:38:58 Vital chart was started 13:38:59 Baseline sample Acquired. 13:39:02 Rhythm: sinus rhythm 13:39:03 Full Disclosure recording started 13:44:27 Physician arrived 13:44:28 --------ALL STOP TIME OUT------ 13:44:28 Final Timeout: patient, procedure, and site verified with staff and physician. All members of the team are in agreement. 13:44:35 Fire Safety Assessment: C--Open oxygen or nitrous oxide is being used. 13:44:44 Physical assessment completed. ASA score P 2 - A patient with mild systemic disease as per Alex Sterling MD. 13:44:48 Sedation plan: TIVA Medication:Propofol 13:45:45 Oxygen 2 l/min etCO2 Nasal cannula was administered by Caesar Gomez RN; Per physician; 13:45:52 Refer to Anesthesia Notes for Sedation Medications was administered by Caesar Gomez RN; Per physician; 13:46:03 0.9% NaCl 100 ml/hr I.V. was administered by Caesar Gomez RN; Per physician; 13:46:06 0.9% NaCl 100 ml/hr I.V. was administered by Caesar Gomez RN; Per physician; 13:46:13 Procedure started. 13:46:15 SHAINA started. 13:53:16 SHAINA completed. 13:53:20 Procedure ended.(Physican Out) 13:55:41 Fluoroscopy time 00.00 minutes. 13:55:42 Fluoroscopy dose: 0 mGy 13:55:42 Flurop Dose total: 0 13:55:45 Contrast amount:Isovue 300 0ml. 13:55:56 Post-procedure physical assessment completed. ASA score P 2 - A patient with mild systemic disease as per Alex Sterling MD. 13:55:58 Post procedure rhythm: unchanged. 13:56:01 Estimated blood loss: 0 ml 13:56:03 Post procedure instruction explained to patient.Patient verbalizes understanding. 13:56:03 Patient needs reinforcement of post procedure teaching. 13:57:31 Procedure Complication : No complications 13:57:33 Vital chart was stopped 13:57:33 See physician's report for complete and final results. 13:57:35 Report given to Pre/Post Procedure Room. 13:57:37 Patient transfered to Pre/Post Procedure Room with Stretcher. 13:57:38 Procedure ended. 13:57:38 Full Disclosure recording stopped 13:57:44 End room use (Document Last) Signature Audit [place] Stage Time Signature Unsigned Intra-Procedure 03/05/2019 Buster Johnyder 1:58:12 PM RT(R) Signatures Performing Physician : Signature : Alex Sterling MD Date : Time : Monitor : Buster Bermudez RT Signature : Date : Time : Nurse : Caesar Gomez RN Signature : Date : Time : [address] [place] [address]
[2019-03-05 12:40] VITALS: BP 150/79; Ht 154.9 cm; Wt 48.6 kg
[2019-03-05] MEDS ORDERED: ZYRTEC10 MG PO (12:46)
[2019-03-05] MEDS ORDERED: TRELEGY ELLIPT1 EACH INH (12:46)
[2019-03-05 13:00] LABS: CALC OSMOLALITY 278 mosm/kg (275-300); CALCIUM 8.7 mg/dL (8.5-10.1); CARBON DIOXIDE 27.2 mmol/L (21.0-32.0); CHLORIDE - SERUM 103 mmol/L (98-107); CREATININE - SERUM 0.6 mg/dL (0.6-1.3); GLUCOSE 97 mg/dL (74-106); POTASSIUM - SERUM 3.9 mmol/L (3.5-5.1); SODIUM 140 mmol/L (136-145); UREA NITROGEN 13 mg/dL (7-18); eGFR NON AFRICAN AMERICAN > 90 mL/min (90-120)
[2019-03-05 13:08] LABS: INR 0.96 (0.85-1.17); PROTIME 12.3 SECONDS (11.6-15.0)
[2019-03-05 13:17] LABS: BASOPHILS 0.3 % (0-2); EOSINOPHILS 1.7 % (0-7); HEMATOCRIT 40.8 % (36.0-48.0); HEMOGLOBIN 13.8 g/dL (12-16); IMMATURE GRANULOCYTES 0.4 % (0-5); LYMPHOCYTES 23.1 % (15-50); MCH 31.6 pg (26.0-34.0); MCHC 33.8 g/dL (31.0-37.0); MCV 93.4 fL (80.0-100.0); MEAN PLATELET VOLUME 10.1 fL (7.4-10.4); MONOCYTES 7.6 % (2-11); NEUTROPHILS 66.9 % (40-80); RBC 4.37 10x6/uL (4.00-5.40); RDW 13.9 % (11.5-14.5); WBC 7.3 10x3/uL (4.8-10.8)
[2019-03-05 13:18] LABS: PLATELET COUNT 226 10x3/uL (130-400)
--- NOTE | 2019-03-05 14:05 | NUR ---
PATIENT ARRIVED TO ROOM 4, PLACED ON CM. VSS. AT BEDSIDE. PHYSICIAN AT BEDSIDE TO UPDATE PATIENT AND FAMILY.
--- NOTE | 2019-03-05 14:20 | NUR ---
PATIENT AWAKE, VSS ON ROOM AIR. PRESENT AT BEDSIDE. NO C/O PAIN, NUMBNESS, OR TINGLING. PHYSICIAN AT BEDSIDE TO UPDATE PATIENT.
--- NOTE | 2019-03-05 14:50 | NUR ---
PATIENT AWAKE, DRINKING APPLE JUICE. VSS ON ROOM AIR. NO C/O PAIN, NUMBNESS, OR TINGLING. IV REMOVED. PATIENT GIVEN PUDDING PER REQUEST.
--- NOTE | 2019-03-05 15:15 | NUR ---
PATIENT AWAKE, VSS ON ROOM AIR. NO N/V. WRITTEN AND VERBAL INSTRUCTIONS REGARDING DISCHARGE EDUCATION AND MEDICATION COMPLIANCE GIVEN TO PATIENT AND SPOUSE, BOTH VOICE UNDERSTANDING. PATIENT TRANSPORTED VIA WHEELCHAIR TO CAR WITH SPOUSE DRIVING, ALL BELONGINGS WITH PATIENT.
--- NOTE | 2019-03-06 13:17 | EC ---
PATIENT:HUBER HOOVER DATE OF SERVICE: 03/05/19 SEX: F MEDICAL RECORD: [id number] DATE OF : 49 LOCATION:[facility] AGE OF PATIENT: 73 ADMISSION DATE: 03/05/19 REFERRING PHYSICIAN: INTERPRETING PHYSICIAN: GEGE ANDERSEN MD ECHOCARDIOGRAM REPORT ECHO CHARGES Date: 03/05/19 CLINICAL DIAGNOSIS: ECHOCARDIOGRAPHIC MEASUREMENTS (adult normal given) AC root (d.<3.7cm) cm LV Septum d (<1.2 cm> cm Valve Excursion cm LV Septum (systole) cm Left Atria (s.<4.0cm> cm LVPW d(<1.2cm) cm RV (d.<2.3cm) cm LVPW (sytole) cm LV diastole(<5.6CM) cm MV E-F(>70mm/sec) cm LV systole cm LVOT Diameter cm MV exc.(>10mm) cm Est.ejection fraction (50-75%) % DOPPLER: LVIT cm/sec A cm/sec E cm/sec LA cm/sec RVSP mmHg LVOT cm/sec AOP1/2T m/s Asc. Ao cm/sec RVOT cm/sec RA cm/sec PA cm/sec AV Gradient Peak mmHg AV Mean mmHg AV Area cm MV Gradient Peak mmHg MV Mean mmHg MV Area cm COMMENTS: Food Production Worker: Shiva EMERSONOE Manufacture Specialist: 3 Dr. Beltran TAPE# PACS Pericardial Effusion DATE OF SERVICE: PROCEDURE: Transesophageal Note DESCRIPTION OF PROCEDURE: After general sedation via TIVA via Anesthesia, transesophageal Omniplane probe placed in the distal esophagus and proximal stomach without difficulty. FINDINGS: No LVH. LV internal dimension is normal. Wall motion is normal. EF is greater than or equal to 55%. Aortic valve is tricuspid with good valve ECHOCARDIOGRAM REPORT [id number] HUBER HOOVER excursion and trivial AI on color flow imaging. Left atrium appears normal. Left atrial appendage is well visualized with good contractility. Mitral valve is well visualized with no evidence of prolapse. Mild MR. Right-sided chambers grossly normal. Trace TR. Chiari network is noted, which is normal vestigial remnant. TRANSINT:[id number] Voice Confirmation ID: [id number] DOCUMENT ID: [id number] GEGE ANDERSEN MD at 1317 CC: [id number] DICTATION DATE: 03/05/19 1405 NEUROLOGICAL PHYSIOTHERAPIST: 03/05/19 1416 DEP CLI 03/05/19 [place] [id number] [place] [address]
== END 2019-03-05 15:15 ==
LOC: D.CATH 11:38
PROVIDERS: ATTEND Internal Medicine Interventional Cardiology
DX: D15.1 Benign neoplasm of heart (principal); I34.0 Nonrheumatic mitral (valve) insufficiency; Z01.812 Encounter for preprocedural laboratory examination

== ENCOUNTER 2019-10-30 13:10 | Outpatient (CLI) | payer MEDICARE, BC ==
[~2019-10-30] VITALS: Ht 154.9 cm; Wt 50.0 kg
[~2019-10-30 13:10] MED LIST changes: +TRELEGY ELLIPT1 EACH INH; +ZYRTEC10 MG PO
[2019-10-30 13:29] VITALS: BP 128/66; Ht 154.9 cm; Wt 50.0 kg
== END 2019-10-30 13:52 | disposition home or self-care (01) ==
LOC: D.OPS 13:10
PROVIDERS: ATTEND Family Medicine
DX: M81.0 Age-related osteoporosis without current pathological fracture (principal)

== ENCOUNTER 2020-05-05 11:07 | Outpatient (CLI) | payer MEDICARE, BC ==
[~2020-05-05] VITALS: Ht 154.9 cm; Wt 52.3 kg
[2020-05-05 11:29] VITALS: BP 148/95; Ht 154.9 cm; Wt 52.3 kg
== END 2020-05-05 11:28 | disposition home or self-care (01) ==
LOC: D.OPS 11:07
PROVIDERS: ATTEND Family Medicine
DX: M81.0 Age-related osteoporosis without current pathological fracture (principal)

== ENCOUNTER 2020-11-02 14:13 | Outpatient (CLI) | payer MEDICARE, OTHER ==
[~2020-11-02] VITALS: Ht 154.9 cm; Wt 50.0 kg
[2020-11-02 15:19] VITALS: BP 144/84; Ht 154.9 cm; Wt 50.0 kg
== END 2020-11-02 15:28 | disposition home or self-care (01) ==
LOC: D.OPS 14:13
PROVIDERS: ATTEND Family Medicine
DX: M81.0 Age-related osteoporosis without current pathological fracture (principal)

== ENCOUNTER → 2021-01-12 16:24 | Outpatient (CLI) | payer MEDICARE, OTHER ==
[2020-11-02 15:19] VITALS: BMI 20.8
== END | disposition home or self-care (01) ==
LOC: D.LABREF 16:24
PROVIDERS: ATTEND Internal Medicine Pulmonary Disease
DX: J44.1 Chronic obstructive pulmonary disease with (acute) exacerbation (principal)

== ENCOUNTER → 2021-01-21 12:56 | Outpatient (CLI) | payer MEDICARE, OTHER ==
[2020-11-02 15:19] VITALS: BMI 20.8
== END | disposition home or self-care (01) ==
LOC: D.HCCECHO 12:56
PROVIDERS: ATTEND Internal Medicine Cardiovascular Disease
DX: R06.00 Dyspnea, unspecified (principal)